=== PATIENT | male | born 1985 | race Caucasian/White ===

== ENCOUNTER 2020-10-23 19:00 | Emergency (ER) | payer SELFPAY ==
[2020-10-23 20:36] VITALS: BP 140/84; PULSE 107; RESP 18; TEMP 36.9; O2SAT 96; BMI 28.0
--- NOTE | 2020-10-23 21:21 | W.ED.DENTAL ---
HPI - Dental/Oral General: Chief complaint: General Medical Stated complaint: TOOTH PAIN Time Seen by Provider: 10/23/20 21:04 Source: patient Mode of arrival: ambulatory Limitations: no limitations History of Present Illness: HPI Narrative: Patient is a 35-year-old male who presents to ED today with a complaint of right upper molar pain. Patient tells me he has known dental caries to this area and often has pain here however for the past few days that feels like I have a heartbeat in my tooth . Family member with him states they are currently trying to schedule him a dentist appointment. He has not noticed any facial or neck swelling. Difficulty swallowing. He does feel like there is swelling surrounding the tooth. MD Complaint: tooth pain Location: Tooth # (1) Onset (ago): day(s) Duration: constant Relieving factors: nothing Exacerbating factors: nothing Associated symptoms: Denies ear or mastoid pain, fever(s) or odynophagia Review of Systems Const: Denies: fever(s), chills, body aches, change in appetite, change in weight, fatigue or malaise Eyes: Denies: change in vision, blurry vision, photophobia, floaters or seeing flashes ENMT: Reports: dental pain; Denies: throat pain, odynophagia, hoarseness, oral sores, bleeding gums, dry mouth, ear or mastoid pain, nasal discharge or nasal congestion Card: Denies: chest pain GI: Denies: abdominal pain, nausea or vomiting Musc: Denies: neck pain Skin/Breast: Denies: rash Neuro: Denies: headache(s) Physical Exam Const: COMMON NORMALS: no acute distress, average body habitus, patient oriented x3, no limitations, healthy appearing, alert and well nourished HENMT: COMMON NORMALS: normocephalic, atraumatic, hearing grossly normal bilaterally, external ears normal, EAC's normal, TM's normal bilaterally, Normal external nose present, Normal nasal mucous membranes and turbinates present, moist oral mucous membranes and oropharynx normal HEAD & SCALP: normal to inspection, normocephalic and atraumatic FACE & SINUS: normal facial exam, sinuses nontender and other (no facial swelling or cellulitis ) NOSE: Normal external nose present and Normal nasal mucous membranes and turbinates present EXTERNAL EAR: Yes external ears normal EXTERNAL AUDITORY CANAL: EAC's normal TYMPANIC MEMBRANE: TM's normal bilaterally MOUTH: Normal oral and palatal mucosa present, lip normal and tongue normal TEETH & GINGIVA: Yes poor dentition and Yes other (floor of mouth is soft) TEETH & GINGIVA IMAGES: 1. decayed molar with surrounding gingival inflammation; no drainable abscess THROAT: posterior oropharynx normal, tonsils normal and uvula midline Neck/C-Spine: GENERAL: Yes normal visual inspection, No anterior neck swelling and No submandibular swelling Neuro: COMMON NORMALS: patient oriented x3 SENSORIUM/ORIENTATION: Yes alert Course Vital Signs: Vital signs: Vital Signs Temperature 98.4 F 10/23/20 20:36 Pulse Rate 107 H 10/23/20 20:36 Respiratory Rate 18 10/23/20 20:36 Blood Pressure 140/84 10/23/20 20:36 Pulse Oximetry 96 10/23/20 20:36 Discharge Plan Discharge Patient Disposition: Home Clinical Impression: Dental infection Condition: Stable Prescriptions: New penicillin V potassium 500 mg tablet 500 mg PO Q8H 7 Days Qty: 21 RF: 0 Discharge Orders: Discharge ED (Routine); Ordered 10/23/20 Ordered By: Jessica Diaz Patient Instructions: Dental Abscess (ED), Dental Caries (ED), Toothache (ED) Coding Level of Care Code 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
[2020-10-23] MEDS: penicillin g (L-A) 1,200,000 unit/2 mL Syr 1200000 UNIT IM (21:33)
[2020-10-23 21:50] VITALS: BP 122/86; PULSE 78; RESP 16; O2SAT 98
== END 2020-10-23 21:51 | disposition home or self-care (01) ==
PROVIDERS: Emergency Provider Physician Assistant
DX: K04.7 Periapical abscess without sinus (principal)
CPT/HCPCS: 96372; 99283; J0561

== ENCOUNTER 2023-12-10 09:44 | Emergency (ER) | payer SELFPAY ==
[2023-12-10 09:48] VITALS: BP 137/82; PULSE 63; RESP 16; TEMP 36.5; O2SAT 98; BMI 27.3
--- NOTE | 2023-12-10 10:08 | XR_ITS ---
WS: [id number] Examination: XR hand RT min 3V* [id number] Reason for Exam: injury/fall Date: December 10, 2023 Comparison: None. Findings: There is soft tissue swelling. The bone density and the joint spaces are maintained. There is no displaced fracture or dislocation XR/XR hand RT min 3V* [id number] Impression: Soft tissue swelling is identified without displaced fracture.
--- NOTE | 2023-12-10 10:40 | ED_ITS ---
HPI - Extremity Injury (Upper) General: Chief Complaint: Extremity Injury, Upper Stated Complaint: right hand injury Time Seen by Provider: 12/10/23 10:36 Source: patient and family Mode of arrival: ambulatory Limitations: no limitations History of Present Illness: Patient is a 38-year-old male presents to ED today with complaint of a right hand injury that he sustained yesterday after accidentally tripping and falling and landing on the hand. He denies any other injuries or complaints at this time. complaint: injury to: right and hand Onset (ago): day(s) Other Extremity Injury: Right: hand Other injuries: none Place: home Severity: moderate Relieving factors: immobilization Exacerbating factors: movement of extremity Context: fall Associated symptoms: Reports no associated symptoms; Denies neck pain Related Data Allergies Allergy/AdvReac Type Severity Reaction Status Date / Time No Known Allergies Allergy Verified 12/10/23 09:51 Review of Systems Musc: Reports: extremity pain (R hand) and extremity swelling (R hand); Denies: neck pain or back pain Physical Exam Const: COMMON NORMALS: no acute distress, average body habitus, no limitations, healthy appearing, alert and well nourished Extremity: COMMON NORMALS: normal to inspection and capillary refill normal GENERAL: Yes normal exam except as noted RIGHT UPPER EXTREMITY: Yes wrist Right wrist: Yes ROM (normal) and Yes neurovascular exam (normal) and Yes hand & digits (TTP R 3-5 MCP/metacarpals; edema; no obvious bony deformities) Right hand and digits: Yes neurovascular exam (normal) and Yes tendon exam (normal) Neuro: COMMON NORMALS: moves all extremities, no focal motor deficits and no sensory deficits noted SENSORIUM/ORIENTATION: Yes alert Course Vital Signs: Vital signs: Vital Signs Temperature 97.7 F 12/10/23 09:48 Pulse Rate 63 12/10/23 09:48 Respiratory Rate 16 12/10/23 09:48 Blood Pressure 137/82 12/10/23 09:48 Pulse Oximetry 98 12/10/23 09:48 Oxygen Delivery Me thod Room Air, Nasal C annula 12/10/23 09:48 MDM - Extremity Injury (Upper) Medical Decision Making XR unremarkable. Patient was encouraged to ice and elevate the extremity. He can follow-up with primary care in 1 to 2 weeks if symptoms do not seem to be improving. Lab Data Radiology Impressions Hand X-Ray 12/10/23 10:08 Impression: Soft tissue swelling is identified without displaced fracture. All radiology interpretation(s) finalized by discharge Discharge Plan Discharge Patient Disposition: Home Clinical Impression: Sprain and strain of right hand Condition: Stable Discharge Orders: Discharge ED (Routine); Ordered 12/10/23 Ordered By: Jessica Diaz Patient Instructions: Hand Sprain (ED) Activity Restrictions/Additional Instructions: As we discussed ice and elevate the extremity is much as possible. Please follow-up with primary care in 1 to 2 weeks if symptoms do not seem to be improving. Coding Level of Care Code ED Secretary To [employer] for Debra Stallings
[2023-12-10 10:53] VITALS: BP 113/85; PULSE 67; O2SAT 99
== END 2023-12-10 10:53 | disposition home or self-care (01) ==
PROVIDERS: Emergency Provider Physician Assistant
DX: S63.91XA Sprain of unspecified part of right wrist and hand, initial encounter (principal); S66.911A Strain of unspecified muscle, fascia and tendon at wrist and hand level, right hand, initial encounter; W01.0XXA Fall on same level from slipping, tripping and stumbling without subsequent striking against object, initial encounter
CPT/HCPCS: 73130; 99283